=== PATIENT | male | born 1995 | race Caucasian/White ===

== ENCOUNTER 2017-03-26 21:00 | Emergency (ER) | payer BC ==
[2017-03-26 21:06] VITALS: BP 136/93
[2017-03-26 21:46] LABS: ABSOLUTE BASOPHILS # (AUTO) 0.1 10^3/uL (0.0-0.2); ABSOLUTE EOSINOPHILS # (AUTO) 0.1 10^3/uL (0.0-0.6); ABSOLUTE LYMPHOCYTES (AUTO) 2.9 10^3/uL (0.5-4.7); ABSOLUTE NEUT (AUTO) 8.9 10^3/uL (1.7-8.2); BASOPHILS % (AUTO) 0.5 % (0-2); EOSINOPHILS % (AUTO) 1.1 % (0-6); HEMATOCRIT 40.1 % (37.9-51.0); HEMOGLOBIN 13.6 g/dL (13.5-17.0); HGB HCT DIFFERENCE 0.7; LYMPHOCYTES % (AUTO) 22.1 % (13-45); MEAN CORPUSCULAR HEMOGLOBIN 27.4 pg (27.0-33.4); MEAN CORPUSCULAR VOLUME 81 fl (80-97); MONOCYTES % (AUTO) 7.4 % (3-13); RED BLOOD COUNT 4.98 10^6/uL (4.35-5.55); RED CELL DISTRIBUTION WIDTH 13.2 % (11.5-14.0); SEGMENTED NEUTROPHILS % (AUTO) 68.9 % (42-78)
[2017-03-26 22:05] LABS: ALANINE AMINOTRANSFERASE 31 U/L (21-72); ALBUMIN 4.9 g/dL (3.5-5.0); ALKALINE PHOSPHATASE 86 U/L (38-126); ANION GAP 14 (5-19); ASPARTATE AMINO TRANSFERASE 17 U/L (17-59); BILIRUBIN,DIRECT 0.4 mg/dL (0.0-0.4); BILIRUBIN,TOTAL 0.5 mg/dL (0.2-1.3); BLOOD UREA NITROGEN 10 mg/dL (7-20); CALCIUM 9.8 mg/dL (8.4-10.2); CARBON DIOXIDE 25 mmol/L (22-30); CHLORIDE 102 mmol/L (98-107); CREATININE RESULT 0.93 mg/dL (0.52-1.25); GLUCOSE 91 mg/dL (75-110); POTASSIUM 3.6 mmol/L (3.6-5.0); SODIUM 140.9 mmol/L (137-145); TOTAL PROTEIN 6.9 g/dL (6.3-8.2)
[2017-03-26] MEDS ORDERED: KETOROLAC TROMETHAMINE 60 MG/2 ML SDV IM ONE (22:11)
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
== END 2017-03-26 22:29 | disposition home or self-care (01) ==
LOC: ER 21:00
DX: R55 Syncope and collapse (principal); S06.0X0A Concussion without loss of consciousness, initial encounter; X58.XXXA Exposure to other specified factors, initial encounter; R03.0 Elevated blood-pressure reading, without diagnosis of hypertension; R51 Headache; R11.10 Vomiting, unspecified; D72.829 Elevated white blood cell count, unspecified; J45.909 Unspecified asthma, uncomplicated; R61 Generalized hyperhidrosis; R63.4 Abnormal weight loss; Z68.26 Body mass index [BMI] 26.0-26.9, adult; R63.0 Anorexia; F17.210 Nicotine dependence, cigarettes, uncomplicated; Z79.899 Other long term (current) drug therapy
CPT/HCPCS: 99284; 96372; 36415; 85025; 80053; J1885

== ENCOUNTER 2017-04-23 18:06 | Emergency (ER) | payer OTHER, BC ==
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
[2017-04-23 21:11] VITALS: BP 137/83
== END 2017-04-23 21:42 | disposition home or self-care (01) ==
LOC: ER 18:06
DX: S80.11XA Contusion of right lower leg, initial encounter (principal); M54.9 Dorsalgia, unspecified; R51 Headache; M54.2 Cervicalgia; M25.561 Pain in right knee; V87.7XXA Person injured in collision between other specified motor vehicles (traffic), initial encounter
CPT/HCPCS: 70450; 72125; 99284

== ENCOUNTER 2018-04-22 05:51 | Emergency (ER) | payer BC ==
[2018-04-22 05:57] VITALS: BP 135/77
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
[2018-04-22] MEDS ORDERED: ACETAMINOPHEN 325 MG TABLET PO ONE (06:27)
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
[2018-04-22] MEDS ORDERED: ONDANSETRON ODT 4 MG TAB (6 TAB/ER DISP) PO PRN (06:42)
== END 2018-04-22 06:49 | disposition home or self-care (01) ==
LOC: ER 05:51
DX: S62.306A Unspecified fracture of fifth metacarpal bone, right hand, initial encounter for closed fracture (principal); W22.09XA Striking against other stationary object, initial encounter; F17.200 Nicotine dependence, unspecified, uncomplicated
CPT/HCPCS: 99283

== ENCOUNTER 2018-09-18 12:57 | Emergency (ER) | payer BC ==
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
[2018-09-18] MEDS ORDERED: HYDROCODONE/ACETAMINOPHEN 5-325 MG TABLET PO ONE (15:02)
--- NOTE | 2018-09-18 15:07 | ER Document Report ---
ED Extremity Problem, Upper - General Chief Complaint: Shoulder Injury Stated Complaint: SHOULDER PAIN Time Seen by Provider: 09/18/18 14:54 Primary Care Provider: [facility] [Provider Group] - Follow up as needed Mode of Arrival: Ambulatory Information source: Patient Notes: 23-year-old male presented to ED for complaint of shoulder pain and pain to his clavicle area after he fell while moving furniture about 2 hours before coming to the emergency room. Patient is alert oriented respirations regular and unlabored speaking in full sentences chest clear to auscultation. Patient has pain with any movement to the shoulder. No pain to the humerus elbow or wrist or hand. There is pain to the mid clavicle area. TRAVEL OUTSIDE OF THE [place] IN LAST 30 DAYS: No - HPI Patient complains to provider of: Injury, Pain, Clavicle, Shoulder Onset: This afternoon Recent injury: Yes Where: Other - Friend's house moving furniture for his friend Quality of pain: Stabbing, Throbbing Severity of pain: Severe Pain Level: 5 Context: Fall Associated symptoms: Other - Clavicle and shoulder Exacerbated by: Movement, Exertion Relieved by: Rest, Positioning Similar symptoms previously: No Recently seen / treated by doctor: No - Related Data Allergies/Adverse Reactions: No Known Drug Allergies Allergy (Verified 03/26/17 21:03) seasonal Allergy (Uncoded 06/06/15 14:02) Past Medical History - General Information source: Patient - Social History Smoking Status: Current Every Day Smoker Cigarette use (# per day): Yes - 5 cigarettes a day Chew tobacco use (# tins/day): No Smoking Education Provided: Yes - 4 minutes Frequency of alcohol use: Social Drug Abuse: Marijuana Occupation: [employer] and [employer] Family History: Reviewed & Not Pertinent Patient has suicidal ideation: No Patient has homicidal ideation: No - Past Medical History Cardiac Medical History: Reports: None Pulmonary Medical History: Reports: Hx Asthma EENT Medical History: Reports: None Neurological Medical History: Reports: Hx Migraine - as a child Endocrine Medical History: Reports: None Renal/ Medical History: Reports: None Malignancy Medical History: Reports None GI Medical History: Reports: None, Hx Gastroesophageal Reflux Disease Musculoskeletal Medical History: Reports Hx Musculoskeletal Trauma - Fractured hand Skin Medical History: Reports None Psychiatric Medical History: Reports: None Traumatic Medical History: Reports: Hx Fractures Infectious Medical History: Reports: None Past Surgical History: Reports: Hx Adenoidectomy, Hx Tonsillectomy - Immunizations Immunizations up to date: Yes Hx Diphtheria, Pertussis, Tetanus Vaccination: Yes Review of Systems - Review of Systems Constitutional: No symptoms reported EENT: No symptoms reported Cardiovascular: No symptoms reported Respiratory: No symptoms reported Gastrointestinal: No symptoms reported Genitourinary: No symptoms reported Male Genitourinary: No symptoms reported Musculoskeletal: Joint pain - Left shoulder and clavicle area Skin: No symptoms reported Hematologic/Lymphatic: No symptoms reported Neurological/Psychological: No symptoms reported -: Yes All other systems reviewed and negative Physical Exam - Vital signs Vitals: Temp Pulse Resp BP Pulse Ox 98.2 F 75 16 141/88 H 97 09/18/18 13:37 09/18/18 13:37 09/18/18 13:37 09/18/18 13:37 09/18/18 13:37 Interpretation: Normal - General General appearance: Appears well, Alert - HEENT Head: Normocephalic, Atraumatic Eyes: Normal Pupils: PERRL - Respiratory Respiratory status: No respiratory distress Chest status: Tender, Ecchymosis - Left clavicle, Pain on movement - Left clavicle, Pain with deep breathing - left clavicle Breath sounds: Normal Chest palpation: Normal - Cardiovascular Rhythm: Regular Heart sounds: Normal auscultation Murmur: No - Abdominal Inspection: Normal Distension: No distension Bowel sounds: Normal Tenderness: Nontender Organomegaly: No organomegaly - Back Back: Normal, Nontender - Extremities General upper extremity: Normal color, Normal temperature General lower extremity: Normal inspection, Nontender, Normal color, Normal ROM, Normal temperature, Normal weight bearing. No: Mike's sign Shoulder: Tender, Ecchymosis, Limited ROM. No: Abrasion, Deformity, Dislocation, Instability, Laceration - Neurological Neuro grossly intact: Yes Cognition: Normal Orientation: AAOx4 Caleb Coma Scale Eye Opening: Spontaneous [place] Coma Scale Verbal: Oriented Caleb Coma Scale Motor: Obeys Commands Caleb Coma Scale Total: 15 Speech: Normal Motor strength normal: LUE, RUE, LLE, RLE Sensory: Normal - Psychological Associated symptoms: Normal affect, Normal mood - Skin Skin Temperature: Warm Skin Moisture: Dry Skin Color: Normal Course - Re-evaluation Re-evalutation: 09/18/18 20:58 Patient was treated with a shoulder immobilizer after he was given report of his left clavicle fracture with a AC separation. Patient was also treated with Otis and discharged home with a prescription for Otis. Patient was instructed to follow-up with orthopedics by telephone tomorrow and schedule a follow-up appointment next week. Patient was discharged home after he was able to verbalize understanding and agreement with treatment plan. He was discharged in the accompaniment of his family. - Vital Signs Vital signs: Temp Pulse Resp BP Pulse Ox 98.6 F 63 18 132/86 H 97 09/18/18 15:12 09/18/18 15:12 09/18/18 15:12 09/18/18 15:12 09/18/18 15:12 - Diagnostic Test Radiology reviewed: Image reviewed, Reports reviewed Procedures - Immobilization Left Shoulder Time completed: 15:10 Pre-Proc Neuro Vasc Exam: Normal Immobilizer type: Shoulder immobilizer Performed by: PCT Post-Proc Neuro Vasc Exam: Normal Alignment checked and good: Yes Discharge - Discharge Clinical Impression: Closed left clavicular fracture Qualifiers: Encounter type: initial encounter Clavicle location: shaft Fracture alignment: nondisplaced Qualified Code(s): S42.025A - Nondisplaced fracture of shaft of left clavicle, initial encounter for closed fracture Condition: Stable Disposition: HOME, SELF-CARE Additional Instructions: Fractured Clavicle You have a broken collarbone (clavicle). This usually heals in three to six weeks, depending on the age of the patient and the severity of the fracture. Even badly crooked collarbone fractures are usually not "set" or operated on, just protected until healing is complete. Usual initial treatment is rest and ice packs. A clavicle strap is placed for most collarbone fractures, but some do better with only a sling. The physician will match the treatment to your fracture. If a clavicle strap was fitted, keep it in place. It may be removed for bathing or for washing the strap after the first week. You may adjust the tigh tness of the strap with the Velcro strips. It should not be so tight that the hands swell or go numb. No heavy lifting, work requiring the arms to be above the head, or school P.E[employer] until healing is complete! Call the doctor or return at once if pain or swelling become severe, or if numbness develops in either arm. You are to wear your shoulder immobilizer at all times several when you were in the shower then you to hold the arm still. You are to call orthopedics today and schedule a follow-up appointment as soon as possible. USE OF TYLENOL (ACETAMINOPHEN): Acetaminophen may be taken for pain relief or fever control. It's much safer than aspirin, offering a wider range of "safe" dosages. It is safe during . Some brand names are Tylenol, Panadol, Datril, Anacin 3, Tempra, and Liquiprin. Acetaminophen can be repeated every four hours. The following are maximum recommended dosages: WEIGHT Dose Drops Elixir Chewable(80mg) (LBS.) drprs=droppers tsp=teaspoon 6 40 mg 0.4 ml (1/2) 6-11 80 mg 0.8 ml (full) tsp 1 tab 12-16 120 mg 1 1/2 drprs 3/4 tsp 1 1/2 tabs 17-23 160 mg 2 drprs 1 tsp 2 tabs 24-30 240 mg 3 drprs 1 1/2 tsp 3 tabs 30-35 320 mg 2 tsp 4 tabs 36-41 360 mg 2 1/4 tsp 4 1/2 tabs 42-47 400 mg 2 1/2 tsp 5 tabs 48-53 480 mg 3 tsp 6 tabs 54-59 520 mg 3 1/4 tsp 6 1/2 tabs 60-64 560 mg 3 1/2 tsp 7 tabs 65-70 600 mg 3 3/4 tsp 7 1/2 tabs 71-76 640 mg 4 tsp 8 tabs 77-82 720 mg 4 1/2 tsp 9 tabs 83-88 800 mg 5 tsp 10 tabs >89 pounds or adults 650 mg to 900 mg Acetaminophen can be repeated every four hours. Maximum dose not to exceed 4000 mg a day. These maximum recommended dosages are slightly higher than the dosages written on the product container, but these dosages are very safe and below the toxic dosage for acetaminophen. ICE PACKS: Apply ice packs frequently against the painful area. Many different schedules are recommended, such as "20 minutes on, 20 minutes off" or "one hour ice, two hours rest." If you need to work, you may need to go longer between ice treatments. You should plan to have the area ice packed AT LEAST one fourth of the time. The ice should be applied over the wrap, tape, or splint, or over a layer of cloth -- not directly against the skin. Some ice bags have a built-in cloth and can be put directly on the skin. ORAL NARCOTIC MEDICATION: You have been given a prescription for pain control. This medication is a narcotic. It's best taken with food, as nausea can result if taken on an empty stomach. Don't operate machinery or drive within six hours of taking this medication. Do not combine this medicine with alcohol, or with any medication which can cause sedation (such as cold tablets or sleeping pills) unless you get permission from the physician. Narcotics tend to cause constipation. If possible, drink plenty of fluids and eat a diet high in fiber and fruits. FOLLOW-UP CARE: If you have been referred to a physician for follow-up care, call the physicians office for an appointment as you were instructed or within the next two days. If you experience worsening or a significant change in your symptoms, notify the physician immediately or return to the Emergency Department at any time for re-evaluation. Prescriptions: Hydrocodone/Acetaminophen [Otis 5-325 mg Tablet] 1 tab PO Q6HP PRN #14 tablet PRN Reason: Forms: Elevated Blood Pressure, Smoking Cessation Education, Return to Work Referrals: [facility] ([facility] [Provider Group] - Follow up as needed
[2018-09-18 15:17] VITALS: BP 132/86
== END 2018-09-18 15:12 | disposition home or self-care (01) ==
LOC: ER 12:57
DX: S42.025A Nondisplaced fracture of shaft of left clavicle, initial encounter for closed fracture (principal); W18.30XA Fall on same level, unspecified, initial encounter; F17.210 Nicotine dependence, cigarettes, uncomplicated; J45.909 Unspecified asthma, uncomplicated
CPT/HCPCS: 99406; 99283; 73030; L3650

== ENCOUNTER → 2018-10-21 | Outpatient (CLI) | payer BC ==
[2018-10-21 10:05] LABS: ABSOLUTE EOSINOPHILS # (AUTO) 0.1 10^3/uL (0.0-0.6); ABSOLUTE LYMPHOCYTES (AUTO) 2.6 10^3/uL (0.5-4.7); ABSOLUTE MONOCYTES (AUTO) 0.8 10^3/uL (0.1-1.4); ABSOLUTE NEUT (AUTO) 4.4 10^3/uL (1.7-8.2); BASOPHILS % (AUTO) 0.6 % (0-2); EOSINOPHILS % (AUTO) 1.8 % (0-6); HEMATOCRIT 41.8 % (37.9-51.0); HEMOGLOBIN 13.9 g/dL (13.5-17.0); LYMPHOCYTES % (AUTO) 32.4 % (13-45); MEAN CORPUSCULAR HEMOGLOBIN 26.6 pg (27.0-33.4); MEAN CORPUSCULAR HGB CONC 33.3 g/dL (32.0-36.0); MEAN CORPUSCULAR VOLUME 80 fl (80-97); MONOCYTES % (AUTO) 10.5 % (3-13); PLATELET COUNT 249 10^3/uL (150-450); RED BLOOD COUNT 5.22 10^6/uL (4.35-5.55); RED CELL DISTRIBUTION WIDTH 13.4 % (11.5-14.0); SEGMENTED NEUTROPHILS % (AUTO) 54.7 % (42-78); TOTAL CELLS COUNTED % (AUTO) 100 %; WHITE BLOOD COUNT 8.1 10^3/uL (4.0-10.5)
[2018-10-21 10:27] LABS: ANION GAP 12 (5-19); BLOOD UREA NITROGEN 13 mg/dL (7-20); CALCIUM 9.9 mg/dL (8.4-10.2); CARBON DIOXIDE 25 mmol/L (22-30); CHLORIDE 104 mmol/L (98-107); GLUCOSE 99 mg/dL (75-110); POTASSIUM 4.2 mmol/L (3.6-5.0); SODIUM 140.8 mmol/L (137-145)
--- NOTE | 2018-10-21 10:36 | RADIOLOGY REPORT (SQ) ---
EXAM DESCRIPTION: CHEST PA/LATERAL COMPLETED DATE/TIME: 10/21/2018 9:36 am REASON FOR STUDY: PRE.OP COMPARISON: 05/20/2012 EXAM PARAMETERS: NUMBER OF VIEWS: two views TECHNIQUE: Digital Frontal and Lateral radiographic views of the chest acquired. RADIATION DOSE: NA LIMITATIONS: none FINDINGS: LUNGS AND PLEURA: No opacities, masses or pneumothorax. No pleural effusion. MEDIASTINUM AND HILAR STRUCTURES: No masses or contour abnormalities. HEART AND VASCULAR STRUCTURES: Heart normal size. No evidence for failure. BONES: No acute findings. HARDWARE: None in the chest. OTHER: No other significant finding. IMPRESSION: NO SIGNIFICANT RADIOGRAPHIC FINDING IN THE CHEST. TECHNICAL DOCUMENTATION: JOB ID: [id number] [employer]- All Rights Reserved Reading location - IP/workstation name: [email or web address]
--- NOTE | 2018-10-22 10:20 | EKG REPORT ---
SEVERITY:- NORMAL ECG - SINUS RHYTHM ST ELEV, PROBABLE NORMAL EARLY REPOL PATTERN : Confirmed by: Juve Thomas 22-Oct-2018 10:18:40
== END ==
LOC: OD 09:14
PROVIDERS: ATTEND Orthopaedic Surgery
DX: Z01.810 Encounter for preprocedural cardiovascular examination (principal); Z01.811 Encounter for preprocedural respiratory examination; Z01.812 Encounter for preprocedural laboratory examination; J45.909 Unspecified asthma, uncomplicated; S43.122A Dislocation of left acromioclavicular joint, 100%-200% displacement, initial encounter; X58.XXXA Exposure to other specified factors, initial encounter
CPT/HCPCS: 36415; 71046; 80048; 85025; 93005; 93010

== ENCOUNTER 2019-01-21 01:12 | Emergency (ER) | payer BC ==
[2019-01-21] MEDS ORDERED: HYDROCODONE/ACETAMINOPHEN 5-325 MG (6 TAB/ER DISP) PO PRN (03:00)
[2019-01-21] MEDS ORDERED: PENICILLIN V POTASSIUM 500 MG TABLET PO ONE (03:00)
--- NOTE | 2019-01-21 03:02 | ER Document Report ---
HPI - HPI Time Seen by Provider: 01/21/19 02:59 Pain Level: 5 Context: Patient is a 23-year-old male that comes to the emergency department for chief complaint of dental pain that has worsened over the past couple days, pain is in the right lower jaw, he has several known dental caries. He denies history of infection or abscess, denies any extractions yet. He denies any diagnosed medical problems. He denies any other complaints including sore throat, headache, fever, neck pain. Past Medical History - General Information source: Patient - Social History Smoking Status: Never Smoker Cigarette use (# per day): No Chew tobacco use (# tins/day): Yes Drug Abuse: None Lives with: Alone Family History: Reviewed & Not Pertinent Pulmonary Medical History: Reports: Hx Asthma Neurological Medical History: Reports: Hx Migraine - as a child Renal/ Medical History: Denies: Hx Peritoneal Dialysis GI Medical History: Reports: Hx Gastroesophageal Reflux Disease Musculoskeletal Medical History: Reports Hx Musculoskeletal Trauma - Fractured hand Traumatic Medical History: Reports: Hx Fractures Past Surgical History: Reports: Hx Adenoidectomy, Hx Tonsillectomy - Immunizations Immunizations up to date: Yes Hx Diphtheria, Pertussis, Tetanus Vaccination: Yes Vertical Provider Document - CONSTITUTIONAL General Appearance: WD/WN, No Apparent Distress - INFECTION CONTROL TRAVEL OUTSIDE OF THE [place] IN LAST 30 DAYS: No - HEENT HEENT: Atraumatic, Normocephalic, PERRLA. negative: Conjuctival Injection, Pharyngeal Exudate, Pharyngeal Tenderness, Pharyngeal Erythema, Tympanic Membrane Red, Tympanic Membrane Bulging Mouth Diagram: 1 - Dental caries with surrounding erythema, no noted induration or fluctuance, no abscess, otherwise unremarkable oropharyngeal exam - NECK Neck: Normal Inspection. negative: Lymphadenopathy-Left, Lymphadenopathy-Right - RESPIRATORY Respiratory: Breath Sounds Normal, No Respiratory Distress - CARDIOVASCULAR Cardiovascular: Regular Rate, Regular Rhythm - GI/ABDOMEN Gastrointestinal: Abdomen Soft, Abdomen Non-Tender - BACK Back: Normal Inspection - MUSCULOSKELETAL/EXTREMETIES Musculoskeletal/Extremeties: MAEW, FROM, Non-Tender - NEURO Level of Consciousness: Awake, Alert, Appropriate Motor/Sensory: No Motor Deficit, No Sensory Deficit - DERM Integumentary: Warm, Dry, No Rash Course - Re-evaluation Re-evalutation: Patient has a dental infection but no evidence of abscess or Forrest's angina. Provided with antibiotics, dental referral, discussed follow-up and return precautions. Patient states understanding and agreement. - Vital Signs Vital signs: Temp Pulse Resp BP Pulse Ox 98.0 F 70 18 150/93 H 97 01/21/19 01:01/21/19 01:29 01/21/19 01:01/21/19 01:01/21/19 01:29 Discharge - Discharge Clinical Impression: Pain, dental, Dental infection Condition: Stable Disposition: HOME, SELF-CARE Additional Instructions: Your evaluation is consistent with a dental infection. Take antibiotics as provided to completion. I recommend 600 mg of ibuprofen and 1000 mg of Tylenol every 6 hours for pain. Follow-up with the referral for the dentist with this will continue to happen. Return if you worsen including swelling of the face. [facility] [address], [address] Prescriptions: Penicillin V Potassium [Penicillin Vk 500 mg Tablet] 500 mg PO BID #20 tablet Referrals: REINIER JUSTICE DO [ACTIVE STAFF] - Follow up as needed
[2019-01-21 03:14] VITALS: BP 147/94
== END 2019-01-21 03:15 | disposition home or self-care (01) ==
LOC: ER 01:12
DX: K04.7 Periapical abscess without sinus (principal); K02.9 Dental caries, unspecified; K08.89 Other specified disorders of teeth and supporting structures; J45.909 Unspecified asthma, uncomplicated; Z72.0 Tobacco use
CPT/HCPCS: 99282

== ENCOUNTER 2019-04-10 17:47 | Inpatient (IN) | payer BC ==
--- NOTE | 2019-04-10 19:20 | ER Document Report ---
ED Medical Screen (RME) - General Chief Complaint: Toothache Stated Complaint: RIGHT SIDE MOUTH PAIN Time Seen by Provider: 04/10/19 19:08 Mode of Arrival: Ambulatory Information source: Patient Notes: 23-year-old male presented to ED for complaint of jaw pain starting on Saturday. On Saturday he went to his primary care doctor and was diagnosed with TMJ and started on penicillin and muscle relaxers. Patient states the primary care called him today to follow-up on his pain and he told her that he was hurting a lot worse and could not swallow so she sent him to the emergency room to be e valuated. He states he does not have any tonsils and adenoids they have been removed. He states the primary care tested him for strep and mono on Saturday and were both negative. He states he does not have a toothache and he has swelling to his right side of his face. He states he has not been able to eat for the last 4 days and he is having trouble swallowing now. He states he has been taking his penicillin and muscle relaxers with no relief. He is afebrile at this time. He states he did have a fever earlier in the week he states his temperature was 102 for about 13 hours earlier in the week. Consulted Dr. Diaz will get CT with IV contrast of soft tissue neck. I have greeted and performed a rapid initial assessment of this patient. A comprehensive ED assessment and evaluation of the patient, analysis of test results and completion of medical decision making process will be conducted by an additional ED providers. TRAVEL OUTSIDE OF THE [place] IN LAST 30 DAYS: No - Related Data Allergies/Adverse Reactions: No Known Drug Allergies Allergy (Verified 03/26/17 21:03) seasonal Allergy (Uncoded 06/06/15 14:02) Past Medical History Pulmonary Medical History: Reports: Hx Asthma Neurological Medical History: Reports: Hx Migraine - as a child Renal/ Medical History: Denies: Hx Peritoneal Dialysis GI Medical History: Reports: Hx Gastroesophageal Reflux Disease Musculoskeltal Medical History: Reports Hx Musculoskeletal Trauma - Fractured hand Traumatic Medical History: Reports: Hx Fractures Past Surgical History: Reports: Hx Adenoidectomy, Hx Tonsillectomy - Immunizations Immunizations up to date: Yes Hx Diphtheria, Pertussis, Tetanus Vaccination: Yes Physical Exam - Vital signs Vitals: Pulse Resp BP Pulse Ox 112 H 18 131/78 H 98 04/10/19 18:18 04/10/19 18:18 04/10/19 18:18 04/10/19 18:18 Course - Vital Signs Vital signs: Temp Pulse Resp BP Pulse Ox 112 H 18 131/78 H 98 04/10/19 18:18 04/10/19 18:18 04/10/19 18:18 04/10/19 18:18
[2019-04-10] MEDS ORDERED: DEXAMETHASONE SOD PHOS INJ 10 MG/1 ML VIAL IM ONE (19:21)
[2019-04-10] MEDS ORDERED: KETOROLAC TROMETHAMINE INJ/PF 30 MG/1 ML SDV IV ONE (19:21)
[2019-04-10 20:03] LABS: ABSOLUTE BASOPHILS # (AUTO) 0.1 10^3/uL (0.0-0.2); ABSOLUTE EOSINOPHILS # (AUTO) 0.1 10^3/uL (0.0-0.6); ABSOLUTE MONOCYTES (AUTO) 1.3 10^3/uL (0.1-1.4); BASOPHILS % (AUTO) 0.5 % (0-2); EOSINOPHILS % (AUTO) 0.6 % (0-6); HEMOGLOBIN 13.5 g/dL (13.5-17.0); LYMPHOCYTES % (AUTO) 12.9 % (13-45); MEAN CORPUSCULAR HEMOGLOBIN 26.4 pg (27.0-33.4); MEAN CORPUSCULAR HGB CONC 33.7 g/dL (32.0-36.0); MEAN CORPUSCULAR VOLUME 79 fl (80-97); MONOCYTES % (AUTO) 8.4 % (3-13); PLATELET COUNT 287 10^3/uL (150-450); RED CELL DISTRIBUTION WIDTH 13.2 % (11.5-14.0); SEGMENTED NEUTROPHILS % (AUTO) 77.6 % (42-78); TOTAL CELLS COUNTED % (AUTO) 100 %; WHITE BLOOD COUNT 15.5 10^3/uL (4.0-10.5)
[2019-04-10 20:22] LABS: ALBUMIN 4.6 g/dL (3.5-5.0); ALKALINE PHOSPHATASE 107 U/L (38-126); ANION GAP 11 (5-19); ASPARTATE AMINO TRANSFERASE 15 U/L (17-59); BILIRUBIN,DIRECT 0.2 mg/dL (0.0-0.4); BILIRUBIN,TOTAL 0.7 mg/dL (0.2-1.3); BLOOD UREA NITROGEN 14 mg/dL (7-20); CALCIUM 9.6 mg/dL (8.4-10.2); CARBON DIOXIDE 28 mmol/L (22-30); CHLORIDE 99 mmol/L (98-107); GLUCOSE 88 mg/dL (75-110); TOTAL PROTEIN 7.7 g/dL (6.3-8.2)
--- NOTE | 2019-04-10 21:41 | RADIOLOGY REPORT (SQ) ---
EXAM DESCRIPTION: CT NECK WITH IV CONTRAST COMPLETED DATE/TME: 04/10/2019 19:22 CLINICAL HISTORY: 23 years, Male, Difficulty swallowing, or opening mouth, facial ne COMPARISON: CT cervical spine dated 04/23/2017 TECHNIQUE: Contrast enhanced CT of the neck was performed. Specifically, 100 mL of Omnipaque 350 intravenous contrast was administered. Images stored on PACS. All CT scanners at this facility use dose modulation, iterative reconstruction, and/or weight based dosing when appropriate to reduce radiation dose to as low as reasonably achievable (ALARA). [facility]: Dose Right [facility]: CareDose [facility]: Dose Right [facility]: Teradose 4D [facility]: [employer] LIMITATIONS: None. FINDINGS: Limited evaluation of the lungs reveals clear lungs. Thyroid gland enhances symmetrically. The hypopharynx, oropharynx, and nasopharynx show no suspicious abnormality. Visualized portions of the brain parenchyma show no suspicious finding. Globes and orbits show no suspicious abnormality. Paranasal sinuses show mild mucosal thickening/mucous retention cysts/inflammatory polyps about the left maxillary antrum. Remaining paranasal sinuses and mastoid air cells are clear. Bilateral parotid and submandibular glands appear normal. There is mild inflammatory stranding located about the soft tissues about the anterior aspect of the neck at the level of the thyroid cartilage extending superiorly into the submental space on the right. Several mildly enlarged right level Ib lymph nodes are evident, the largest of which measures 1.0 x 1.2 cm in size on image 52 of series 3. There is associated thickening of the right platysma muscle with inflammatory stranding noted about the soft tissues just anterior to this region. No well-demarcated drainable fluid collection is clearly identified. A few associated mildly prominent right level IIa and level III lymph nodes are evident. The right internal jugular vein opacifies with contrast normally. Bone windows show no destructive osseous lesions. IMPRESSION: Mild inflammatory stranding about the superficial soft tissues of the anterior neck at the level of the thyroid cartilage extending superiorly into the submental space on the right with associated thickening of the right platysma muscle as well as several mildly enlarged right level Ib, level IIa, and level III lymph nodes. Overall, findings are most suspicious for facial cellulitis with associated reactive lymphadenopathy. No drainable abscess is identified. Recommend follow-up to resolution. TECHNICAL DOCUMENTATION: Quality ID # [id number]: Final reports with documentation of one or more dose reduction techniques (e.g., Automated exposure control, adjustment of the mA and/or kV according to patient size, use of iterative reconstruction technique) copyright 2011 [employer]- All Rights Reserved
[2019-04-10] MEDS ORDERED: IPRATROPIUM/ALBUTEROL 0.5-2.5 MG/3 ML AMPUL NEB PRN (22:13)
[2019-04-10] MEDS ORDERED: ACETAMINOPHEN 325 MG TABLET PO PRN (22:13)
[2019-04-10] MEDS ORDERED: MAGNESIUM HYDROXIDE SUSP 30 ML UDCUP PO PRN (22:13)
[2019-04-10] MEDS ORDERED: MAG HYDROX/AL HYDROX/SIMETH SUSP 30 ML UDCUP PO PRN (22:13)
--- NOTE | 2019-04-10 22:14 | ER Document Report ---
Entered by JIMMY ROSALES SCRIBE 04/10/192120 Acting as scribe for:SHIELA BEDOLLA MD ED Oral Problem - General Chief Complaint: Jaw Pain Stated Complaint: RIGHT SIDE MOUTH PAIN Time Seen by Provider: 04/10/19 19:08 Mode of Arrival: Ambulatory Information source: Patient Notes: 23-year-old male who presents to the emergency department today with complaints of right-sided jaw pain which increased when trying to open his mouth. Patient was started on antibiotics and muscle relaxers by a local urgent care two days ago (penicillin VK 500 mg and cyclobenzaprine) for this. Patient states he was diagnosed with "TMJ". Patient states his throat hurts when he swallows but he denies any difficulty swallowing or handling his secretions. Patient denies shortness of breath. TRAVEL OUTSIDE OF THE [place] IN LAST 30 DAYS: No - Related Data Allergies/Adverse Reactions: No Known Drug Allergies Allergy (Verified 03/26/17 21:03) seasonal Allergy (Uncoded 06/06/15 14:02) Past Medical History - General Information source: Patient - Social History Smoking Status: Current Some Day Smoker Cigarette use (# per day): Yes Chew tobacco use (# tins/day): No Frequency of alcohol use: None Drug Abuse: None Lives with: Family Family History: Reviewed & Not Pertinent Patient has suicidal ideation: No Patient has homicidal ideation: No Pulmonary Medical History: Reports: Hx Asthma Neurological Medical History: Reports: Hx Migraine - as a child GI Medical History: Reports: Hx Gastroesophageal Reflux Disease Musculoskeletal Medical History: Reports Hx Musculoskeletal Trauma - Fractured hand Traumatic Medical History: Reports: Hx Fractures Past Surgical History: Reports: Hx Adenoidectomy, Hx Tonsillectomy - Immunizations Immunizations up to date: Yes Hx Diphtheria, Pertussis, Tetanus Vaccination: Yes Review of Systems - Review of Systems Constitutional: No symptoms reported EENT: See HPI, Throat pain, Mouth pain, Mouth swelling, Dental problem. denies: Difficulty swallowing, Throat swelling Cardiovascular: No symptoms reported Respiratory: denies: Short of breath Gastrointestinal: No symptoms reported Genitourinary: No symptoms reported Male Genitourinary: No symptoms reported Musculoskeletal: No symptoms reported Skin: No symptoms reported Hematologic/Lymphatic: No symptoms reported Neurological/Psychological: No symptoms reported -: Yes All other systems reviewed and negative Physical Exam - Vital signs Vitals: Pulse Resp BP Pulse Ox 112 H 18 131/78 H 98 04/10/19 18:18 04/10/19 18:18 04/10/19 18:18 04/10/19 18:18 - Notes Notes: Physical Exam: General: Alert, appears uncomfortable. HEENT: Normocephalic. Atraumatic. PERRL. Extraocular movements intact. Oropharynx clear. No lymphadenopathy. Some tenderness with palpation over the right anterior cervical musculature without any areas of induration. No Ludwigs angina. Posterior oropharynx is clear, no stridor. Lower third molars bi laterally have multiple dental caries. Only able to open jaw to about 25% due to pain. Neck: Supple. Non-tender. Respiratory: No respiratory distress. Clear and equal breath sounds bilaterally. Cardiovascular: Regular rate and rhythm. Abdominal: Normal Inspection. Non-tender. No distension. Normal Bowel Sounds. Back: No gross abnormalities. Extremities: Moves all four extremities. Upper extremities: Normal inspection. Normal ROM. Lower extremities: Normal inspection. No edema. Normal ROM. Neurological: Normal cognition. AAOx4. Normal speech. Psychological: Normal affect. Normal Mood. Skin: Warm. Dry. Normal color. Course - Re-evaluation Re-evalutation: 04/10/19 21:48 Will be admitted for facial cellulitis patient started on clindamycin and accepted by Dr. Contreras - Vital Signs Vital signs: Temp Pulse Resp BP Pulse Ox 99.5 F 112 H 18 131/78 H 98 04/10/19 20:07 04/10/19 18:18 04/10/19 18:18 04/10/19 18:18 04/10/19 18:18 - Laboratory Result Diagrams: 04/10/19 19:50 04/10/19 19:50 Laboratory results interpreted by me: 04/10/19 04/10/19 19:50 19:50 WBC 15.5 H MCV 79 L MCH 26.4 L Lymph % (Auto) 12.9 L Absolute Neuts (auto) 12.0 H AST 15 L Discharge - Discharge Clinical Impression: Facial cellulitis Condition: Good Disposition: ADMITTED INPATIENT Admitting Provider: Ben (Hospitalist) Unit Admitted: Medical Floor I personally performed the services described in the documentation, reviewed and edited the documentation which was dictated to the scribe in my presence, and it accurately records my words and actions.
[2019-04-10] MEDS: CLINDAMYCIN 600 MG/D5W RTU 600 MG/50 ML RTUPB IV SCH (22:20)
[2019-04-10] MEDS: LEVOFLOXACIN 750 MG/D5W RTU 750 MG/150 ML RTUPB IV SCH (23:48)
[2019-04-11] MEDS ORDERED: KETOROLAC TROMETHAMINE INJ/PF 30 MG/1 ML SDV IV PRN (00:56)
[2019-04-11] MEDS ORDERED: INFLUENZA QUAD (6MOS+) 2019-20 VAC 0.5 ML SYR IM ONE (01:04)
[2019-04-11] MEDS: NORMAL SALINE 1000 ML 1,000 ML IV PRN ×3 (01:20→11:37)
[2019-04-11] MEDS: HYDROCODONE/ACETAMINOPHEN 7.5-325 MG TABLET PO PRN ×3 (01:22→15:16)
[2019-04-11] MEDS: CLINDAMYCIN 600 MG/D5W RTU 600 MG/50 ML RTUPB IV SCH ×3 (05:47→21:19)
[2019-04-11] MEDS: HEPARIN SOD (PORCINE) 5,000 UNIT/ML 1 ML VIAL SUBCUT SCH ×3 (05:47→21:19)
[2019-04-11 05:57] LABS: ABSOLUTE LYMPHOCYTES (AUTO) 0.7 10^3/uL (0.5-4.7); ABSOLUTE MONOCYTES (AUTO) 0.2 10^3/uL (0.1-1.4); ABSOLUTE NEUT (AUTO) 9.8 10^3/uL (1.7-8.2); BASOPHILS % (AUTO) 0.1 % (0-2); EOSINOPHILS % (AUTO) 0.1 % (0-6); HEMATOCRIT 37.5 % (37.9-51.0); HEMOGLOBIN 12.8 g/dL (13.5-17.0); LYMPHOCYTES % (AUTO) 6.8 % (13-45); MEAN CORPUSCULAR HEMOGLOBIN 26.9 pg (27.0-33.4); MEAN CORPUSCULAR HGB CONC 34.3 g/dL (32.0-36.0); MEAN CORPUSCULAR VOLUME 79 fl (80-97); MONOCYTES % (AUTO) 1.8 % (3-13); PLATELET COUNT 267 10^3/uL (150-450); RED BLOOD COUNT 4.77 10^6/uL (4.35-5.55); RED CELL DISTRIBUTION WIDTH 13.3 % (11.5-14.0); SEGMENTED NEUTROPHILS % (AUTO) 91.2 % (42-78); TOTAL CELLS COUNTED % (AUTO) 100 %; WHITE BLOOD COUNT 10.7 10^3/uL (4.0-10.5)
[2019-04-11 06:23] LABS: ANION GAP 13 (5-19); BLOOD UREA NITROGEN 14 mg/dL (7-20); CALCIUM 9.7 mg/dL (8.4-10.2); CARBON DIOXIDE 21 mmol/L (22-30); CHLORIDE 107 mmol/L (98-107); GLUCOSE 151 mg/dL (75-110); POTASSIUM 4.7 mmol/L (3.6-5.0)
--- NOTE | 2019-04-11 06:51 | PDOC H&P ---
History of Present Illness Admission Date/PCP: 04/10/19 22:18 Patient complains of: 10 days of pain to the right jaw History of Present Illness: MARGOTH RIOS is a 23 year old male with history of tobacco, GERD, asthma and poor dentition. He presents with 10 days of right jaw pain. Seen in urgent care and treated with penicillin for presumed infectious source. He has had no improvement but now develops pain with swallowing and opening his mouth. In the emergency room he is found to have fever, leukocytosis and facial cellulitis by CT with reactive adenopathy but no abscess formation. He started on empiric antibiotics and referred to the hospitalist for admission. Patient denies previous episode he admits to poor dentition. Past Medical History Medical History: None Pulmonary Medical History: Reports: Asthma Neurological Medical History: Reports: Migraine - as a child GI Medical History: Reports: Gastroesophageal Reflux Disease Psychiatric Medical History: Denies: Depression Past Surgical History Past Surgical History: Reports: Tonsillectomy Social History Information Source: Patient Lives with: Family Smoking Status: Current Some Day Smoker Cigarettes Packs Per Day: 1 Electronic Cigarette use?: No Frequency of Alcohol Use: Social Drugs: None Hx Prescription Drug Abuse: No - Advance Directive Resuscitation Status: Full Code Family History Family History: Hypertension Parental Family History Reviewed: Yes Children Family History Reviewed: Yes Sibling(s) Family History Reviewed.: Yes Medication/Allergy Home Medications: Fluticasone/Salmeterol [Advair 250-50 Diskus] 1 puff IH DAILY 08/14/11 Xopenex PO PRN PRN 08/14/11 Oxycodone HCl/Acetaminophen [Percocet 5-325 mg Tablet] 1 - 2 tab PO Q4H PRN #25 tablet 10/03/14 Naproxen 500 mg PO BID #30 tablet 06/06/15 Methocarbamol [Robaxin 500 mg Tablet] 500 mg PO Q4H PRN #15 tablet 04/23/17 Naproxen [Naprosyn 250 mg Tablet] 500 mg PO Q12H PRN #30 tablet 04/23/17 Hydrocodone/Acetaminophen [[place] 5-325 mg Tablet] 1 tab PO Q6 PRN #12 tablet 04/22/18 Hydrocodone/Acetaminophen [[place] 5-325 mg Tablet] 1 tab PO Q6HP PRN #14 tablet 09/18/18 Penicillin V Potassium [Penicillin Vk 500 mg Tablet] 500 mg PO BID #20 tablet 01/21/19 Allergies/Adverse Reactions: No Known Drug Allergies Allergy (Verified 03/26/17 21:03) seasonal Allergy (Uncoded 06/06/15 14:02) Review of Systems Constitutional: ABSENT: chills, fever(s), headache(s), weight gain, weight loss Eyes: ABSENT: visual disturbances Ears: ABSENT: hearing changes Nose, Mouth, and Throat: PRESENT: as per HPI, mouth pain Cardiovascular: ABSENT: chest pain, dyspnea on exertion, edema, orthropnea, palpitations Respiratory: ABSENT: cough, hemoptysis Gastrointestinal: ABSENT: abdominal pain, constipation, diarrhea, hematemesis, hematochezia, nausea, vomiting Genitourinary: ABSENT: dysuria, hematuria Musculoskeletal: ABSENT: joint swelling Integumentary: ABSENT: rash, wounds Neurological: ABSENT: abnormal gait, abnormal speech, confusion, dizziness, focal weakness, syncope Psychiatric: ABSENT: anxiety, depression, homidical ideation, suicidal ideation Endocrine: ABSENT: cold intolerance, heat intolerance, polydipsia, polyuria Hematologic/Lymphatic: ABSENT: easy bleeding, easy bruising Physical Exam Vital Signs: Temp Pulse Resp BP Pulse Ox 97.3 F 54 L 16 119/73 100 04/11/19 04:46 04/11/19 04:46 04/11/19 04:46 04/11/19 04:46 04/11/19 04:46 Intake & Output 04/09/19 04/10/19 04/11/19 11:59 11:59 11:59 Intake Total 1464 Output Total 0 Balance 1464 Weight 106.4 kg General appearance: PRESENT: cooperative, mild distress, well-developed, well- nourished Head exam: PRESENT: atraumatic, normocephalic Eye exam: PRESENT: conjunctiva pink, EOMI, PERRLA. ABSENT: scleral icterus Ear exam: PRESENT: normal external ear exam Mouth exam: PRESENT: moist, tongue midline Teeth exam: PRESENT: dental caries, poor dentation Throat exam: PRESENT: tonsillar erythema. ABSENT: tonsillar exudate Neck exam: PRESENT: lymphadenopathy - Anterior cervical chain and submental tenderness. ABSENT: carotid bruit, JVD, thyromegaly Respiratory exam: PRESENT: clear to auscultation sadi. ABSENT: rales, rhonchi, wheezes Cardiovascular exam: PRESENT: RRR. ABSENT: diastolic murmur, rubs, systolic murmur Pulses: PRESENT: normal dorsalis pedis pul Vascular exam: PRESENT: normal capillary refill GI/Abdominal exam: PRESENT: normal bowel sounds, soft. ABSENT: distended, guarding, mass, organolmegaly, rebound, tenderness Rectal exam: PRESENT: deferred Extremities exam: PRESENT: full ROM. ABSENT: calf tenderness, clubbing, pedal edema Neurological exam: PRESENT: alert, awake, oriented to person, oriented to place, oriented to time, oriented to situation, CN II-XII grossly intact. ABSENT: motor sensory deficit Psychiatric exam: PRESENT: appropriate affect, normal mood. ABSENT: homicidal ideation, suicidal ideation Skin exam: PRESENT: dry, intact, warm. ABSENT: cyanosis, rash Results Laboratory Results: 04/11/19 05:30 04/11/19 05:30 04/10/19 04/10/19 04/11/19 19:50 19:50 05:30 WBC 15.5 H 10.7 H RBC 5.10 4.77 Hgb 13.5 12.8 L Hct 40.0 37.5 L MCV 79 L 79 L MCH 26.4 L 26.9 L MCHC 33.7 34.3 RDW 13.2 13.3 Plt Count 287 267 Seg Neutrophils % 77.6 91.2 H Sodium 138.3 Potassium 4.0 Chloride 99 Carbon Dioxide 28 Anion Gap 11 BUN 14 Creatinine 0.86 Est GFR ( Amer) > 60 Glucose 88 Calcium 9.6 Total Bilirubin 0.7 AST 15 L Alkaline Phosphatase 107 Total Protein 7.7 Albumin 4.6 04/11/19 05:30 WBC RBC Hgb Hct MCV MCH MCHC RDW Plt Count Seg Neutrophils % Sodium 140.5 Potassium 4.7 Chloride 107 Carbon Dioxide 21 L Anion Gap 13 BUN 14 Creatinine 0.71 Est GFR ( Amer) > 60 Glucose 151 H Calcium 9.7 Total Bilirubin AST Alkaline Phosphatase Total Protein Albumin Impressions: Soft Tissue Neck CT 04/10/19 19:22 IMPRESSION: Mild inflammatory stranding about the superficial soft tissues of the anterior neck at the level of the thyroid cartilage extending superiorly into the submental space on the right with associated thickening of the right platysma muscle as well as several mildly enlarged right level Ib, level IIa, and level III lymph nodes. Overall, findings are most suspicious for facial cellulitis with associated reactive lymphadenopathy. No drainable abscess is identified. Recommend follow-up to resolution. TECHNICAL DOCUMENTATION: Quality ID # 436: Final reports with documentation of one or more dose reduction techniques (e.g., Automated exposure control, adjustment of the mA and/or kV according to patient size, use of iterative reconstruction technique) copyright 2011 [employer]- All Rights Reserved Assessment and Plan - Diagnosis (1) Facial cellulitis Is this a current diagnosis for this admission?: Yes Plan: Most likely secondary to poor dentition, empiric antibiotics initiated, no evidence for Forrest's or formed abscess. Symptomatic management, follow-up blood culture and CBC (2) Tobacco abuse Is this a current diagnosis for this admission?: Yes Plan: Nicotine replacement options discussed, cessation counseling and education. - Time Time Spent with patient: 15-24 minutes - Inpatient Certification Medical Necessity: Need Close Monitoring Due to Risk of Patient Decompensation
[2019-04-11] MEDS: DOCUSATE SODIUM 100 MG CAPSULE PO SCH ×2 (11:28→18:19)
--- NOTE | 2019-04-11 15:17 | PDOC PROGRESS REPORT ---
Subjective Progress Note for:: 04/11/19 Subjective:: MARGOTH RIOS is a 23 year old male with history of tobacco, GERD, asthma and poor dentition who was admitted 04/10/2019 for facial cellulitis. Patient was seen on morning rounds with his significant other present. He is found resting in bed comfortably on room air. He was sleeping when I entered the room but did wake easily when I said his name. He reports continued right side jaw and neck pain that limits his ability to open his mouth. He does report that he has been told that he has several poor teeth that need to be extracted surgically but is unaware of any dental abscesses at this time. He does report difficulty swallowing due to pain. He denies fever, chills, chest pain, palpitations, dyspnea, orthopnea, abdominal pain, nausea vomiting diarrhea. They have no new questions or concerns at this time. No concerns per nursing. Reason For Visit: FACIAL CELLULLITIS Physical Exam Vital Signs: Temp Pulse Resp BP Pulse Ox 97.4 F 57 L 16 131/66 H 97 04/11/19 11:31 04/11/19 11:31 04/11/19 11:31 04/11/19 11:31 04/11/19 11:31 Intake & Output 04/10/19 04/11/19 04/12/19 06:59 06:59 06:59 Intake Total 1464 718 Output Total 0 Balance 1464 718 Weight 106.4 kg General appearance: PRESENT: no acute distress, cooperative, obese, well- developed, well-nourished Head exam: PRESENT: atraumatic, normocephalic Eye exam: PRESENT: conjunctiva pink, EOMI, PERRLA. ABSENT: scleral icterus Mouth exam: PRESENT: moist, tongue midline Teeth exam: PRESENT: dental caries, dental tenderness, poor dentation Neck exam: PRESENT: lymphadenopathy, tenderness - right lateral. ABSENT: carotid bruit, JVD, thyromegaly Respiratory exam: PRESENT: clear to auscultation sadi, symmetrical, unlabored. ABSENT: rales, rhonchi, wheezes Cardiovascular exam: PRESENT: RRR, +S1, +S2. ABSENT: diastolic murmur, rubs, systolic murmur Vascular exam: PRESENT: normal capillary refill Extremities exam: PRESENT: full ROM. ABSENT: calf tenderness, clubbing, pedal edema Musculoskeletal exam: PRESENT: ambulatory Neurological exam: PRESENT: alert, awake, oriented to person, oriented to place, oriented to time, oriented to situation, CN II-XII grossly intact. ABSENT: motor sensory deficit Psychiatric exam: PRESENT: appropriate affect, normal mood. ABSENT: homicidal ideation, suicidal ideation Skin exam: PRESENT: dry, intact, warm. ABSENT: cyanosis, rash Results Laboratory Results: 04/11/19 05:30 04/11/19 05:30 04/10/19 04/10/19 04/11/19 19:50 19:50 05:30 WBC 15.5 H 10.7 H RBC 5.10 4.77 Hgb 13.5 12.8 L Hct 40.0 37.5 L MCV 79 L 79 L MCH 26.4 L 26.9 L MCHC 33.7 34.3 RDW 13.2 13.3 Plt Count 287 267 Seg Neutrophils % 77.6 91.2 H Sodium 138.3 Potassium 4.0 Chloride 99 Carbon Dioxide 28 Anion Gap 11 BUN 14 Creatinine 0.86 Est GFR ( Amer) > 60 Glucose 88 Calcium 9.6 Total Bilirubin 0.7 AST 15 L Alkaline Phosphatase 107 Total Protein 7.7 Albumin 4.6 04/11/19 05:30 WBC RBC Hgb Hct MCV MCH MCHC RDW Plt Count Seg Neutrophils % Sodium 140.5 Potassium 4.7 Chloride 107 Carbon Dioxide 21 L Anion Gap 13 BUN 14 Creatinine 0.71 Est GFR ( Amer) > 60 Glucose 151 H Calcium 9.7 Total Bilirubin AST Alkaline Phosphatase Total Protein Albumin Impressions: Soft Tissue Neck CT 04/10/19 19:22 IMPRESSION: Mild inflammatory stranding about the superficial soft tissues of the anterior neck at the level of the thyroid cartilage extending superiorly into the submental space on the right with associated thickening of the right platysma muscle as well as several mildly enlarged right level Ib, level IIa, and level III lymph nodes. Overall, findings are most suspicious for facial cellulitis with associated reactive lymphadenopathy. No drainable abscess is identified. Recommend follow-up to resolution. TECHNICAL DOCUMENTATION: Quality ID # 436: Final reports with documentation of one or more dose reduction techniques (e.g., Automated exposure control, adjustment of the mA and/or kV according to patient size, use of iterative reconstruction technique) copyright 2011 [employer]- All Rights Reserved Assessment and Plan - Diagnosis (1) Facial cellulitis Is this a current diagnosis for this admission?: Yes Plan: Improved. WBCs are trending down; 15.5-> 10.7 T-max last 24 hours 99.5, and tachycardia has resolved. Patient does continue to have significant jaw/mouth discomfort limiting his ability to open his mouth and swallow which is impeding his oral intake CT Neck revealed inflammatory stranding to the soft tissues of the anterior neck with associated thickening of the right platysma muscle and associated lymphadenopathy Blood cultures are pending The patient is admitted to the medical floor We will continue IV clindamycin and levothyroxine. Continue analgesics as needed. We will continue IV fluids until patient is able to adequately take p.o. fluids (2) Tobacco abuse Is this a current diagnosis for this admission?: Yes Plan: Nicotine replacement options discussed, cessation counseling and education. Smoking cessation encouraged. Nicotine or placement therapy provided. (4) Leukocytosis Qualifiers: Leukocytosis type: unspecified Qualified Code(s): D72.829 - Elevated white blood cell count, unspecified Is this a current diagnosis for this admission?: Yes Plan: Improved; WBCs trending down. Secondary #1. Cultures Anaprox as above. (5) Dental abscess Is this a current diagnosis for this admission?: Yes Plan: Patient reports history of poor dentition, caries, and multiple teeth that have been recommended to be extracted. Today he informed nursing that he felt a pop to his right gumline followed by expectorating thick, yellow, purulent fluid. Unfortunately, oral exam is limited due to pain; did attempt to evaluate but the patient was unable to open his mouth more than 1 cm wide. Continue IV antibiotics as above. Additionally will add chlorhexidine mouthwash twice daily. Patient has been provided in local sliding scale dentists list; will require timely follow-up after discharge. - Time Time Spent with patient: 25-34 minutes Medications reviewed and adjusted accordingly: Yes Anticipated discharge: Home Within: within 24 hours
[2019-04-11] MEDS: CHLORHEXIDINE GLUCONATE 0.12% ORAL RINSE 15 ML UDC MM SCH (18:19)
[2019-04-11] MEDS: LEVOFLOXACIN 750 MG/D5W RTU 750 MG/150 ML RTUPB IV SCH (22:23)
[2019-04-12] MEDS: HEPARIN SOD (PORCINE) 5,000 UNIT/ML 1 ML VIAL SUBCUT SCH (05:10)
[2019-04-12] MEDS: CLINDAMYCIN 600 MG/D5W RTU 600 MG/50 ML RTUPB IV SCH (05:10)
[2019-04-12 05:45] LABS: HEMATOCRIT 37.9 % (37.9-51.0); HEMOGLOBIN 12.9 g/dL (13.5-17.0); MEAN CORPUSCULAR HEMOGLOBIN 26.5 pg (27.0-33.4); MEAN CORPUSCULAR VOLUME 78 fl (80-97); PLATELET COUNT 283 10^3/uL (150-450); RED BLOOD COUNT 4.85 10^6/uL (4.35-5.55); RED CELL DISTRIBUTION WIDTH 13.3 % (11.5-14.0); WHITE BLOOD COUNT 10.2 10^3/uL (4.0-10.5)
[2019-04-12 06:04] LABS: ANION GAP 6 (5-19); BLOOD UREA NITROGEN 11 mg/dL (7-20); CALCIUM 9.3 mg/dL (8.4-10.2); CARBON DIOXIDE 27 mmol/L (22-30); CHLORIDE 106 mmol/L (98-107); GLUCOSE 109 mg/dL (75-110); POTASSIUM 3.8 mmol/L (3.6-5.0)
[2019-04-12] MEDS: CHLORHEXIDINE GLUCONATE 0.12% ORAL RINSE 15 ML UDC MM SCH (09:29)
[2019-04-12] MEDS: DOCUSATE SODIUM 100 MG CAPSULE PO SCH (09:29)
[2019-04-12 10:48] VITALS: BP 117/65
--- NOTE | 2019-04-12 12:44 | PDOC DISCHARGE SUMMARY ---
Impression - Admit/DC Date/PCP Admission Date/Primary Care Provider: 04/10/19 22:18 Discharge Date: 04/12/19 - Discharge Diagnosis (1) Facial cellulitis Is this a current diagnosis for this admission?: Yes (2) Tobacco abuse Is this a current diagnosis for this admission?: Yes (3) Tachycardia Is this a current diagnosis for this admission?: Yes (4) Leukocytosis Is this a current diagnosis for this admission?: Yes (5) Dental abscess Is this a current diagnosis for this admission?: Yes - Additional Information Resuscitation Status: Full Code Discharge Diet: As Tolerated, Regular Discharge Activity: Activity As Tolerated Prescriptions: Clindamycin HCl [Cleocin 150 mg Capsule] 300 mg PO Q8 #30 capsule Levofloxacin [Levaquin 750 mg Tablet] 750 mg PO DAILY #7 tablet Hydrocodone/Acetaminophen [[place] 7.5-325 mg Tablet] 1 tab PO Q6HP PRN #12 tablet PRN Reason: Chlorhexidine Gluconate [Periogard 0.12% Oral Rinse 15 ml] 15 ml MM BID #420 ml Home Medications: Acetaminophen [Tylenol 325 mg Tablet] 650 mg PO Q4HP PRN tablet 04/12/19 Chlorhexidine Gluconate [Periogard 0.12% Oral Rinse 15 ml] 15 ml MM BID #420 ml 04/12/19 Clindamycin HCl [Cleocin 150 mg Capsule] 300 mg PO Q8 #30 capsule 04/12/19 Hydrocodone/Acetaminophen [[place] 7.5-325 mg Tablet] 1 tab PO Q6HP PRN #12 tablet 04/12/19 Levofloxacin [Levaquin 750 mg Tablet] 750 mg PO DAILY #7 tablet 04/12/19 History of Present Illiness History of Present Illness: Per H&P by Dr. Contreras: MARGOTH RIOS is a 23 year old male with history of tobacco, GERD, asthma and poor dentition. He presents with 10 days of right jaw pain. Seen in urgent care and treated with penicillin for presumed infectious source. He has had no improvement but now develops pain with swallowing and opening his mouth. In the emergency room he is found to have fever, leukocytosis and facial cellulitis by CT with reactive adenopathy but no abscess formation. He started on empiric antibiotics and referred to the hospitalist for admission. Patient denies previous episode he admits to poor dentition. Hospital Course Hospital Course: The patient was admitted to the medical floor on continuous cardiac telemetry. He was provided IV fluids and empirically placed on clindamycin and Levaquin. His tachycardia resolved facial edema, difficulty swallowing, and sore throat improved significantly. Of note, patient did note a popping sensation followed by drainage of purulent fluid from his right lower gumline yesterday with subsequent decrease in pain. He is now tolerating adequate oral intake and requesting to discharge to home. He has been provided a dental list and strongly encouraged follow-up as soon as possible. Patient is discharged home in stable condition with prescription for clindamycin and Levaquin. He is instructed to follow-up with his primary care provider within 1 week. He is advised to follow-up with a dentist at the earliest available appointment. He is instructed to drink plenty of water and to eat as tolerated. He is encouraged to return to the emergency department as needed for concerning symptoms. Physical Exam Vital Signs: Temp Pulse Resp BP Pulse Ox 98.1 F 59 L 16 117/65 100 04/12/19 10:46 04/12/19 10:46 04/12/19 10:46 04/12/19 10:46 04/12/19 10:46 Intake & Output 04/11/19 04/12/19 04/13/19 06:59 06:59 06:59 Intake Total 1514 2750 Output Total 0 Balance 1514 2750 Weight 106.4 kg 105.2 kg General appearance: PRESENT: no acute distress, well-developed, well-nourished Head exam: PRESENT: atraumatic, normocephalic Eye exam: PRESENT: conjunctiva pink, EOMI, PERRLA. ABSENT: scleral icterus Ear exam: PRESENT: normal external ear exam Mouth exam: PRESENT: moist, tongue midline, other - Slight right facial edema; significantly improved from yesterday Teeth exam: PRESENT: dental caries, poor dentation Neck exam: PRESENT: full ROM. ABSENT: carotid bruit, JVD, lymphadenopathy, thyromegaly Respiratory exam: PRESENT: clear to auscultation asdi, symmetrical, unlabored. ABSENT: rales, rhonchi, wheezes Cardiovascular exam: PRESENT: RRR, +S1, +S2. ABSENT: diastolic murmur, rubs, systolic murmur Vascular exam: PRESENT: normal capillary refill Extremities exam: PRESENT: full ROM. ABSENT: calf tenderness, clubbing, pedal edema Musculoskeletal exam: PRESENT: ambulatory Neurological exam: PRESENT: alert, awake, oriented to person, oriented to place, oriented to time, oriented to situation, CN II-XII grossly intact. ABSENT: motor sensory deficit Psychiatric exam: PRESENT: appropriate affect, normal mood. ABSENT: homicidal ideation, suicidal ideation Skin exam: PRESENT: dry, intact, warm. ABSENT: cyanosis, rash Results Laboratory Results: WBC 10.2 10^3/uL (4.0-10.5) 04/12/19 05:01 RBC 4.85 10^6/uL (4.35-5.55) 04/12/19 05:01 Hgb 12.9 g/dL (13.5-17.0) L 04/12/19 05:01 Hct 37.9 % (37.9-51.0) 04/12/19 05:01 MCV 78 fl (80-97) L 04/12/19 05:01 MCH 26.5 pg (27.0-33.4) L 04/12/19 05:01 MCHC 34.0 g/dL (32.0-36.0) 04/12/19 05:01 RDW 13.3 % (11.5-14.0) 04/12/19 05:01 Plt Count 283 10^3/uL (150-450) 04/12/19 05:01 Lymph % (Auto) 6.8 % (13-45) L 04/11/19 05:30 [place] % (Auto) 1.8 % (3-13) L 04/11/19 05:30 Eos % (Auto) 0.1 % (0-6) 04/11/19 05:30 Baso % (Auto) 0.1 % (0-2) 04/11/19 05:30 Absolute Neuts (auto) 9.8 10^3/uL (1.7-8.2) H 04/11/19 05:30 Absolute Lymphs (auto) 0.7 10^3/uL (0.5-4.7) 04/11/19 05:30 Absolute Monos (auto) 0.2 10^3/uL (0.1-1.4) 04/11/19 05:30 Absolute Eos (auto) 0.0 10^3/uL (0.0-0.6) 04/11/19 05:30 Absolute Basos (auto) 0.0 10^3/uL (0.0-0.2) 04/11/19 05:30 Seg Neutrophils % 91.2 % (42-78) H 04/11/19 05:30 Sodium 139.2 mmol/L (137-145) 04/12/19 05:01 Potassium 3.8 mmol/L (3.6-5.0) 04/12/19 05:01 Chloride 106 mmol/L (98-107) 04/12/19 05:01 Carbon Dioxide 27 mmol/L (22-30) 04/12/19 05:01 Anion Gap 6 (5-19) 04/12/19 05:01 BUN 11 mg/dL (7-20) 04/12/19 05:01 Creatinine 0.75 mg/dL (0.52-1.25) 04/12/19 05:01 Est GFR ( Amer) > 60 (>60) 04/12/19 05:01 Est GFR (MDRD) Non-Af > 60 (>60) 04/12/19 05:01 Glucose 109 mg/dL (75-110) 04/12/19 05:01 Calcium 9.3 mg/dL (8.4-10.2) 04/12/19 05:01 Total Bilirubin 0.7 mg/dL (0.2-1.3) 04/10/19 19:50 Direct Bilirubin 0.2 mg/dL (0.0-0.4) 04/10/19 19:50 Neonat Total Bilirubin Not Reportable 04/10/19 19:50 Neonat Direct Bilirubin Not Reportable 04/10/19 19:50 Neonat Indirect Bili Not Reportable 04/10/19 19:50 AST 15 U/L (17-59) L 04/10/19 19:50 ALT 18 U/L (<50) 04/10/19 19:50 Alkaline Phosphatase 107 U/L (38-126) 04/10/19 19:50 Total Protein 7.7 g/dL (6.3-8.2) 04/10/19 19:50 Albumin 4.6 g/dL (3.5-5.0) 04/10/19 19:50 Impressions: Soft Tissue Neck CT 04/10/19 19:22 IMPRESSION: Mild inflammatory stranding about the superficial soft tissues of the anterior neck at the level of the thyroid cartilage extending superiorly into the submental space on the right with associated thickening of the right platysma muscle as well as several mildly enlarged right level Ib, level IIa, and level III lymph nodes. Overall, findings are most suspicious for facial cellulitis with associated reactive lymphadenopathy. No drainable abscess is identified. Recommend follow-up to resolution. TECHNICAL DOCUMENTATION: Quality ID # [id number]: Final reports with documentation of one or more dose reduction techniques (e.g., Automated exposure control, adjustment of the mA and/or kV according to patient size, use of iterative reconstruction technique) copyright 2011 [employer]- All Rights Reserved Plan Plan of Treatment: Patient is discharged home in stable condition. He is provided a low cost/sliding scale dentists list and instructed to follow- up at the earliest available appointment. He is advised to follow-up with his primary care provider within 1 week. He is instructed to complete his course of antibiotic therapy. Is encouraged to return to the emergency department as needed for concerning symptoms. Time Spent: Less than 30 Minutes Stroke Is this a Stroke Patient?: No Acute Heart Failure - Is this a Heart Failure Patient?: No
[2019-04-12] MEDS ORDERED: CLINDAMYCIN HCL 150 MG CAPSULE PO SCH (14:00)
[2019-04-12] MEDS ORDERED: LEVOFLOXACIN 750 MG TABLET PO SCH (22:00)
== END 2019-04-12 11:40 | disposition home or self-care (01) | DRG 603 ==
LOC: ER 17:47 → EH 22:18 → 4N 04-11 00:46
PROVIDERS: ADMIT Internal Medicine; ATTEND Internal Medicine
DX: L03.211 Cellulitis of face (principal); F17.210 Nicotine dependence, cigarettes, uncomplicated; J45.909 Unspecified asthma, uncomplicated; K21.9 Gastro-esophageal reflux disease without esophagitis; K08.9 Disorder of teeth and supporting structures, unspecified; R59.1 Generalized enlarged lymph nodes; K04.7 Periapical abscess without sinus; Z82.49 Family history of ischemic heart disease and other diseases of the circulatory system
CPT/HCPCS: 36415; 70491; 80048; 80053; 85025; 85027; 87040; 96372; 96374; 99284; J1100; J1644; J1885; J1956; J7030